=== PATIENT | male | born 1955 | race Two or more races ===

== ENCOUNTER 2017-02-02 19:13 | Inpatient (IN) | payer OTHER ==
[~2017-02-02] VITALS: Ht 157.5 cm; Wt 82.5 kg
[2017-02-02 19:55] VITALS: Ht 157.5 cm; Wt 82.5 kg
[2017-02-02 20:49] VITALS: BP 146/85; RESP 19
[2017-02-02] MEDS ORDERED: VANCOMYCIN IV PER PHARMACY XX SCH (21:00)
[2017-02-02] MEDS ORDERED: ONDANSETRON 4 MG INJ IV PRN (21:00)
[2017-02-02] MEDS: SOD CHLORIDE 0.9% 1,000 ML IV SCH (21:53)
[2017-02-02] MEDS: traZODone 100 MG TAB PO SCH (22:57)
[2017-02-02] MEDS: FAMOTIDINE 20 MG TAB PO SCH (22:58)
[2017-02-02] MEDS: ESCITALOPRAM 10 MG TAB PO SCH (22:58)
[2017-02-03] MEDS: VANCOMYCIN 750 MG in SOD CHLORIDE 0.9% 150 ML IVPB SCH ×2 (00:18→11:32)
[2017-02-03] MEDS: ACETAMINOPHEN 325 MG TAB PO PRN ×3 (00:23→11:32)
[2017-02-03 02:42] VITALS: BP 144/79; RESP 19
[2017-02-03 05:16] LABS: BASOPHILS % 0.5 % (0.0-2.0); EOSINOPHILS # 0.2 10^3/ul (0.0-0.5); EOSINOPHILS % 2.4 % (0.0-7.0); HEMATOCRIT 39.8 % (42.0-52.0); LYMPHOCYTES # 2.4 10^3/ul (0.8-2.9); LYMPHOCYTES % 32.3 % (15.0-51.0); MEAN CORPUSCULAR HEMOGLOBIN 27.2 pg (29.0-33.0); MEAN CORPUSCULAR HGB CONC 32.7 g/dl (32.0-37.0); MEAN CORPUSCULAR VOLUME 83.3 fl (82.0-101.0); MONOCYTE # 0.6 10^3/ul (0.3-0.9); MONOCYTES % 7.9 % (0.0-11.0); NEUTROPHIL # 4.2 10^3/ul (1.6-7.5); NEUTROPHILS % 55.3 % (39.0-77.0); PLATELET COUNT 129 10^3/UL (140-415); POSITIVE DIFF @See below; RED BLOOD COUNT 4.78 10^6/ul (4.70-6.10); RED CELL DISTRIBUTION WIDTH 14.6 % (11.5-14.5); WHITE BLOOD COUNT 7.6 10^3/ul (4.8-10.8)
[2017-02-03 05:52] LABS: CREATININE 0.76 mg/dl (0.61-1.24)
[2017-02-03 07:58] VITALS: BP 148/81; RESP 19
[2017-02-03] MEDS: METHADONE 10 MG TAB PO SCH (08:37)
[2017-02-03] MEDS: FAMOTIDINE 20 MG TAB PO SCH ×2 (08:37→21:22)
[2017-02-03] MEDS: SOD CHLORIDE 0.9% 1,000 ML IV SCH (11:32)
[2017-02-03] MEDS: morphine 2 MG INJ IV PRN ×3 (12:41→23:09)
--- NOTE | 2017-02-03 12:52 | PN ---
Date/Time of Note Date/Time of Note DATE: 02/03/17 TIME: 12:45 Assessment/Plan VTE Prophylaxis VTE Prophylaxis Intervention: LMWH Lines/Catheters IV Catheter Type (from Nrsg): Peripheral IV Assessment/Plan Chief Complaint/Hosp Course 61 y/o with 1. Left arm cellulitis s/p heroin injection r/o abscess 2 Rt foot cellultis 3 Heroin use 4 Depression 5 HTN? Recs - c/w iv vanco - Left arm elevated - CT of left arm - ID consult - c/w Soma checked with clinic - pain control - gi/dvt prophylaxis Problems: Subjective 24 Hr Interval Summary Free Text/Dictation Pain in left arm Exam/Review of Systems Vital Signs Vitals Vital Signs Date Time Temp Pulse Resp B/P Pulse Ox O2 Delivery O2 Flow Rate FiO2 02/03/17 07:58 97.2 63 19 148/81 98 Intake and Output 02/02/17 02/02/17 02/03/17 15:00 23:00 07:00 Intake Total 1240 ml Output Total 800 ml Balance 440 ml Exam Gen: Awake and alert Neck:supple EXT: Left arm antecubital swelling 6 x6 cm, firm to palpation, no discharge, no ulcer Rt foot+red, erthyema Results Result Diagram: 02/03/17 0452 02/03/17 0452 Results 24 hrs Laboratory Tests Test 02/03/17 04:52 White Blood Count 7.6 Red Blood Count 4.78 Hemoglobin 13.0 L Hematocrit 39.8 L Mean Corpuscular Volume 83.3 Mean Corpuscular Hemoglobin 27.2 L Mean Corpuscular Hemoglobin Concent 32.7 Red Cell Distribution Width 14.6 H Platelet Count 129 L Mean Platelet Volume 11.0 H Neutrophils % 55.3 Lymphocytes % 32.3 Monocytes % 7.9 Eosinophils % 2.4 Basophils % 0.5 Nucleated Red Blood Cells % 0.0 Neutrophils # 4.2 Lymphocytes # 2.4 Monocytes # 0.6 Eosinophils # 0.2 Basophils # 0.0 Nucleated Red Blood Cells # 0.0 Sodium Level 139 Potassium Level 4.0 Chloride Level 102 Carbon Dioxide Level 27 Anion Gap 14 Blood Urea Nitrogen 12 Creatinine 0.76 Glucose Level 125 Calcium Level 9.0 Medications Medications Current Medications Acetaminophen (Tylenol Tab) 650 mg Q4H PRN PO PAIN AND OR ELEVATED TEMP Last administered on 02/03/17t 11:32; Admin Dose 650 MG; Start 02/02/17 at 21:00 Ondansetron HCl (Zofran Inj) 4 mg Q6H PRN IV NAUSEA AND/OR VOMITING; Start at 21:00 Famotidine (Pepcid) 20 mg BID PO Last administered on 02/03/17 08:37; Admin Dose 20 MG; Start 02/02/17 at 21:00 Acetaminophen/ Hydrocodone Bitart ([place] (5/325)) 1 tab Q4H PRN PO PAIN LEVEL 7 -10; Start 02/02/17 at 21:00 Morphine Sulfate (morphine) 2 mg Q4H PRN IV PAIN LEVEL 7-10 Last administered on 02/03/17 12:41; Admin Dose 2 MG; Start 02/02/17 at 21:00 Escitalopram Oxalate (Lexapro) 20 mg HS PO Last administered on 02/02/17 22: 58; Admin Dose 20 MG; Start 02/02/17 at 21:00 Methadone HCl (Methadone) 80 mg DAILY PO Last administered on 02/03/17 08:37 ; Admin Dose 80 MG; Start 02/03/17 at 09:00 Trazodone HCl 100 mg 100 mg HS PO Last administered on 02/02/17 22:57; Admin Dose 100 MG; Start 02/02/17 at 21:00 Vancomycin HCl/ Sodium Chloride (Vancocin/NS) 150 ml @ 75 mls/hr Q12H IVPB Last administered on 02/03/17 11:32; Admin Dose 75 MLS/HR; Start 02/03/17 at 00:00 Miscellaneous Information (*Rx Drug Level Order Reminder*) VANCOMYCIN TROUGH AT 2300 ONCE ONCE XX ; Start 02/03/17 at 23:00; Stop 02/03/17 at 23:01 MATTHEW MUHAMMAD MD Feb 03, 2017 12:52
[2017-02-03] MEDS ORDERED: ENOXAPARIN 40 MG/0.4 ML SYG SC ONE (13:00)
[2017-02-03] MEDS: HYDROCODONE/APAP (5/325) TAB PO PRN ×2 (13:51→20:03)
[2017-02-03 14:00] VITALS: BP 132/72; RESP 19
[2017-02-03] MEDS ORDERED: IOHEXOL 300MG/ML 150 ML BTL ONE (15:59)
[2017-02-03] MEDS ORDERED: SOD CHLORIDE 0.9% 100 ML ONE (15:59)
[2017-02-03 20:27] VITALS: BP 166/83; RESP 16
--- NOTE | 2017-02-03 20:28 | HP ---
DATE OF ADMISSION: 02/02/2017 REASON FOR ADMISSION: Transferred from [facility] for left arm cellulitis. HISTORY OF PRESENT ILLNESS: This is a 61-year-old male with a past medical history of hyperlipidemi a, history of questionable asthma, history of depression, presented to the emergency department at [facility] for evaluation of erythema, warmth and tenderness of the left antecubital area starting 2 weeks ago after injecting heroin. The patient said that he has been clean for the last 10 years, bu t 2 weeks ago he was having bad depression since he lost his home. He started injecting heroin and he injected heroin on the left arm and after that he noticed that it was all red and had eryth rito. There developed a swelling on the left arm. He thought that it would go away, but the pain an d the swelling was not going away, so he came to the emergency department. He was also having some chills at home. The patient also admits on injecting into bilateral feet. He did it on the right f oot at the same time. On arrival to in the ED at [facility], he was having fever of 100.3. His white count was 8.9. Patient had ultrasound of the left arm which was negative. Was given Ty lenol 1 gram, vancomycin 2.5, and then and transferred to [facility] for insurance reasons. PAST MEDICAL HISTORY: 1. Bipolar disorder. 2. Chronic head pain. 3. Hernia. 4. Questionable hypertension. 5. Migraine. 6. History of subdural hematoma caused by concussion. ALLERGIES: NONE. PAST SURGICAL HISTORY: Cholecystectomy. HOME MEDICATIONS: According to him are: 1. . 2. Questionable Simvastatin. 3. Methadone 80. SOCIAL HISTORY: He reports that he has been smoking cigarettes. He has been smoking about 3 to 4 c igarettes per day. He does not drink alcohol. REVIEW OF SYSTEMS: Negative except the history of presenting illness. The patient denies rash, hea dache, neck pain, fevers, chills, , any focal weakness. PHYSICAL EXAMINATION: VITAL SIGNS: Temperature 97.2, heart rate 63, respirations 18, blood pressure 148/81. GENERAL: The patient is well developed and well-nourished male. He does not appear to be in any ac cathi distress. HEENT: Pupils equal, round, reactive to light. NECK: Supple, no JVD. LUNGS: Clear to auscultate bilaterally. ABDOMEN: Soft, nontender, nondistended, positive normoactive bowel sounds. EXTREMITIES: The patient has swelling and tenderness with 5 to 6 cm area present in the left upper extremity just above the elbow. There is no open ulceration. No active discharge. On the right l ower extremity on the foot, the patient has some erythema and some swelling. Well healed surgical s cars in bilateral upper and lower extremities. NEUROLOGIC: Nonfocal. DIAGNOSTIC DATA: BMP within normal limit, white count 7.6, hemoglobin 13.0, platelet count 129. ASSESSMENT: This is a 61-year-old male presenting with: 1. Left upper extremity cellulitis/rule out abscess. 2. History of depression. 3. Hypercholesterolemia. 4. Chronic pain, on methadone. PLAN: The patient was admitted to med/surg. We will elevate the left upper extremity. Will get CT of the left upper extremity to rule out any abscess. We will also get the x-ray of the right lower extremity. The patient is currently on vancomycin. ID consult has already been requested. Rest o f the treatment will depend on the patient hospitalization course. Dictated By: MATTHEW JON/EVON Conf#: [id number] DID#: [id number]
[2017-02-03] MEDS: traZODone 100 MG TAB PO SCH (21:22)
[2017-02-03] MEDS: ESCITALOPRAM 10 MG TAB PO SCH (21:22)
[2017-02-04] MEDS: VANCOMYCIN 1.25 GM in SOD CHLORIDE 0.9% 250 ML IVPB SCH ×2 (01:37→12:22)
[2017-02-04 02:14] VITALS: BP 138/72; RESP 16
[2017-02-04] MEDS: HYDROCODONE/APAP (5/325) TAB PO PRN ×3 (04:26→15:18)
[2017-02-04 07:37] VITALS: BP 161/69; RESP 19
--- NOTE | 2017-02-04 07:57 | RADRPT ---
PROCEDURE: CT of the left upper extremity with contrast CLINICAL INDICATION: Left arm cellulitis TECHNIQUE: CT scan of the left upper extremity was performed after 100 cc IV of Omnipaque with con trast was administered. Coronal and sagittal reformatted images were obtained from the axial source images. Images were reviewed on a high-resolution PACS workstation. The calculated radiation dose measures 1918.35 mGy centimeters. The CTDI measures 26.95mGy. One or more of the following dose reduction techniques were used: - Automated exposure control. - Adjustment of the mA and/or kV according to patient size . - Use of iterative reconstruction technique. COMPARISON: None available FINDINGS: Soft tissues: There is mild subcutaneous stranding in the region medial to the elbow. No drainable fluid collectio n is identified. There is no abnormal intramuscular fluid collection. Osseous structures: There is no cortical destruction or soft tissue gas to suggest osteomyelitis. Ununited osseous fragm ents are seen at the medial and lateral epicondyles of the elbow. The joints are grossly maintained. IMPRESSION: 1. No CT evidence of a drainable fluid collection. 2. No acute osseous abnormality. RPTAT: UU .Vadim Alvares MD, Date Time Electronically viewed and signed by .Vadim Alvares MD, on 02/04/2017 07:57 .d/
[2017-02-04] MEDS: FAMOTIDINE 20 MG TAB PO SCH (08:19)
[2017-02-04] MEDS: METHADONE 10 MG TAB PO SCH (08:20)
--- NOTE | 2017-02-04 13:34 | PN ---
DATE: 02/04/2017 SUBJECTIVE: The patient is alert. Feels good. Looks comfortable and no fevers. LABORATORY DATA: No labs this morning. ANTIMICROBIALS: The patient is on IV vancomycin. PHYSICAL EXAMINATION GENERAL: This is a well nourished, well developed, elderly man who is in no distress. HEAD, EARS, EYES, NOSE, AND THROAT: Head atraumatic, normocephalic. Sclerae anicteric. Buccal muc rola pink. NECK: Supple. CHEST: Rise symmetrical. Breath sounds clear. HEART: S1 and S2. ABDOMEN: Soft. Bowel tones present. EXTREMITIES: Left upper extremity swelling; however, no erythema and no pain ASSESSMENT 1. Left upper extremity superficial thrombophlebitis, status post heroin injection. 2. Polysubstance abuse. PLAN: The patient remains stable. We are going to add warm moist compresses to the area. Continue present care. Methadone management as per primary team. Dictated By: AMBER OLIVA LUMBER CHECKER for CRYSTAL SALAZAR/EVON Conf#: [id number] DID#: [id number]
[2017-02-04 15:27] VITALS: BP 140/89; RESP 18
--- NOTE | 2017-02-04 16:25 | PDOCDIS ---
Discharge Instructions DIAGNOSIS Discharge Diagnosis Heroin abuse thrombophelbtitis CONDITION Patient Condition: Good HOME CARE INSTRUCTIONS: Special Diet: 2 Gm Na ACTIVITY: Activity Restrictions: Slowly Increase Activity FOLLOW UP/APPOINTMENTS Follow-up Plan f/u PCP in 2 weeks stop heroin use MATTHEW MUHAMMAD MD Feb 04, 2017 16:25
[2017-02-04] MEDS ORDERED: METH10TA2 PO (16:26)
[2017-02-04] MEDS ORDERED: ESCI10TA48 PO (16:26)
[2017-02-04] MEDS ORDERED: TRAZ100T15 PO (16:26)
--- NOTE | 2017-02-05 04:21 | DS ---
DATE OF ADMISSION: 02/02/2017 DATE OF DISCHARGE: 02/04/2017 FINAL DISCHARGE DIAGNOSES: 1. Questionable left upper extremity cellulitis; however, seen by ID. Patient was thought to have thrombophlebitis, improved with warm compresses. 2. History of depression. 3. Hypercholesterolemia. 4. Chronic pain, on methadone. 5. History of subdural hematoma caused by concussion. 6. History of hernia. 7. Hypertension. HISTORY OF PRESENT ILLNESS AND HOSPITAL COURSE: A 61-year-old male with past medical history of hyp ertension, asthma, history of depression, presented to emergency department at [place] with eryth rito, warmth and tenderness in the left antecubital area starting 2 weeks ago after injecting heroin. The patient said that he had been clean for the last 2 years, but 2 weeks ago started having bad d epression since he lost his home. After that he started injecting heroin. He developed a swelling on the left arm. He thought it would go away. Pain and swelling was not going away. He came to [facility] emergency department. Also has some chills at home. At [facility], he had fevers 100.3. White count was 8.9. Ultrasound of the left arm which was negative and transferred to [facility] for insurance reasons. The patient had swelling and tenderness 5 to 6 cm area present in t he left upper extremity just above the elbow. No open ulceration. No active discharge. In right l ower extremity, the region had some erythema and some swelling but seemed to have been improving. W muriel count was 7.6, hemoglobin 13.6. The patient had a CT of the upper extremity that showed no moi dence of any drainable collection. The patient was seen by ID consult. The patient was initially s tarted on IV fluids and vancomycin. However, per ID consultation the patient had left upper extremi ty superficial thrombophlebitis and as per ID, the patient's antibiotics can be discontinued and we can add warm moist compresses and the patient can be discharged. The patient was feeling much kimmie r and will be discharged home in stable condition. DISCHARGE MEDICATIONS: Continue with home medications which were: 1. Methadone 80 mg daily. 2. Lexapro 20. 3. Trazodone 100. 4. The patient was also given a prescription for [place] 5/325 tablet for only 10 tabs. FOLLOWUP: The patient was instructed to follow up with PCP in about 1 to 2 weeks. Dictated By: MATTHEW VENTURA Conf#: [id number] DID#: [id number]
--- NOTE | 2017-02-05 06:33 | CONS ---
DATE OF ADMISSION: 02/02/2017 DATE OF CONSULTATION: 02/03/2017 TYPE OF CONSULTATION: Infectious Disease. REASON FOR CONSULTATION: Antibiotic management. HISTORY OF PRESENT ILLNESS: Gamaliel Taylor is a 61-year-old male who was transferred from [facility] for left arm cellulitis. His past problems include 1. Hyperlipidemia. 2. Questionable asthma. 3. Depression. 4. Bipolar disorder. 5. Chronic pain. 6. History of hernia. 7. Migraine headaches. 8. History of subdural hematoma caused by a concussion. 9. Cholecystectomy. Acutely, the patient presented to [facility] with erythema, warmth, and tenderness of the l eft antecubital area, starting 2 weeks after injecting heroin. He was clean for the last 10 years, but 2 weeks ago, he had some depression after he lost his home. He started to inject heroin in the left arm and noticed that it became red and erythematous. He had some chills at home. He also note s that he injected his feet bilaterally. At [place], his temperature was 100.3. White count was . Ultrasound of the left arm was negative. His white count was , H and H of 13 and 39.8 , platelet count 129,000. BUN and creatinine of 12/0.76. The patient had a CT scan of the upper ex tremity, which showed no CT evidence of a drainable fluid collection and no acute osseous abnormalit y. The patient was started on vancomycin. He is also on methadone. PAST MEDICAL HISTORY: Operations, as outlined. FAMILY HISTORY: Noncontributory. SOCIAL HISTORY: He has been smoking cigarettes. We know that he abuses drugs. He smokes 3 to 4 ci garettes per day. Does not drink alcohol. ALLERGIES: NONE TO PENICILLIN, SULFA, OR FOODS. MEDICATIONS: Per chart. REVIEW OF SYSTEMS: Noncontributory. PHYSICAL EXAMINATION GENERAL: The patient is a well developed, well-nourished male who is awake, responsive, in no acute distress. VITAL SIGNS: Stable. He is afebrile. SKIN: Without generalized rash. HEAD, EARS, EYES, NOSE, AND THROAT: Within normal limits. NECK: Supple. LYMPH NODES: None palpable. CHEST: Decreased breath sounds at the bases. HEART: Without murmur or gallop. ABDOMEN: Soft, nontender, without organosplenomegaly or masses. EXTREMITIES: He has swelling and tenderness of the left upper extremity just above the elbow for 5 to 6 cm. No ulcerations. No discharge. He has some erythema in the right lower extremity as well. He has surgical scars, which are healed, bilateral upper and lower extremities. RECTAL AND GENITAL: Exams deferred. NEUROLOGICAL EVALUATION: No focal neurological abnormalities. IMPRESSION AND PLAN: The patient presents now with left upper extremity cellulitis. He is currentl y on vancomycin. We will continue him on this regimen. I will dictate my findings to Dr. Solitario. Dictated By: CRYSTAL LOZADA MD, JD/EVON Conf#: [id number] DID#: [id number] CC: MASTER AMIN MD;*EndCC*
== END 2017-02-04 17:20 | disposition home or self-care (01) | DRG 300 ==
LOC: MS1 19:13
PROVIDERS: ADMIT Internal Medicine Nephrology; ATTEND Internal Medicine Nephrology
DX: I80.8 Phlebitis and thrombophlebitis of other sites (principal); L03.115 Cellulitis of right lower limb; I10 Essential (primary) hypertension; E78.5 Hyperlipidemia, unspecified; G89.4 Chronic pain syndrome; F11.99 Opioid use, unspecified with unspecified opioid-induced disorder; F31.9 Bipolar disorder, unspecified; F17.210 Nicotine dependence, cigarettes, uncomplicated; F19.10 Other psychoactive substance abuse, uncomplicated; Z90.49 Acquired absence of other specified parts of digestive tract
CPT/HCPCS: 73200; 80048; 80202; 85025; J1650; J2270; J3370; J7030; J7050; Q9967